=== PATIENT | female | born 1985 | race Caucasian/White ===

== ENCOUNTER → 2017-08-14 | Outpatient (CLI) | payer OTHER ==
[~2017-08-14] MED LIST: ACCUNEB SO1.25 MG/1; ANTIVERT25 MG PO; DOXYCYCLINE 10100 MG PO; FLEXERIL PO; IRON325 PO; METFORMIN HCL500 MG PO; PREDNISONE 10 M10 MG PO; PROAIR HFA8.5 GM INH; RECLIPSEN1 EACH PO; ZPAK PO; ZYRTEC10 M2
== END ==
LOC: M.CT 09:52
DX: K76.0 Fatty (change of) liver, not elsewhere classified (principal); R10.84 Generalized abdominal pain; K92.0 Hematemesis